=== PATIENT | female | born 1965 | race Caucasian/White ===

== ENCOUNTER 2016-07-26 17:43 | Inpatient (IN) | payer MEDICARE, BC ==
[2016-07-26 18:30] LABS: Glucose,Whole Blood 111 mg/dL (75-99)
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
--- NOTE | 2016-07-26 19:06 | CT ---
EXAMINATION TYPE: CT brain wo con for TPA DATE OF EXAM: 07/26/2016 COMPARISON: NONE HISTORY: Loss of function in Right Lower leg. No known injury CT DLP: 1121 mGycm Automated exposure control for dose reduction was used. FINDINGS: Ventricles of normal size. There is no mass effect nor midline shift. There is no sign of intracrania l hemorrhage. The calvarium is intact. IMPRESSION: Negative unenhanced head CT scan.
--- NOTE | 2016-07-26 19:15 | XR ---
EXAMINATION TYPE: XR chest 2V DATE OF EXAM: 07/26/2016 COMPARISON: NONE HISTORY: Leg weakness TECHNIQUE: Frontal and lateral views of the chest are obtained. FINDINGS: Heart and mediastinum are normal. Lungs are clear. Diaphragm is normal. There are chest le ads. Bony thorax appears normal. IMPRESSION: Normal chest
[2016-07-26 19:24] LABS: Basophils % (A) 0 %; CHCM 32.2; Eosinophils # (A) 0.3 k/uL (0-0.7); Eosinophils % (A) 3 %; HCT 35.8 % (34.0-46.0); HDW 2.81; HGB 11.2 gm/dL (11.4-16.0); Hypochromasia Slight; Luc # (Auto) 0.19; Luc % (Auto) 2; Lymphocytes # (A) 2.7 k/uL (1.0-4.8); Lymphocytes % (A) 29 %; MCH 28.4 pg (25.0-35.0); MCHC 31.4 g/dL (31.0-37.0); MCV 90.6 fL (80.0-100.0); Mean Platelet Volume 7.6; Monocytes # (A) 0.5 k/uL (0-1.0); Monocytes % (A) 5 %; Neutrophils # (A) 5.6 k/uL (1.3-7.7); Neutrophils % (A) 60 %; RBC 3.95 m/uL (3.80-5.40); RDW 14.3 % (11.5-15.5); WBC 9.3 k/uL (3.8-10.6)
[2016-07-26 19:28] LABS: Creatine Kinase 105 U/L (30-135)
[2016-07-26 19:30] LABS: ALT 26 U/L (9-52); AST 25 U/L (14-36); Alkaline Phosphatase 91 U/L (38-126); Anion Gap 10 mmol/L; Blood Urea Nitrogen 14 mg/dL (7-17); Calcium 9.2 mg/dL (8.4-10.2); Carbon Dioxide 20 mmol/L (22-30); Chloride 109 mmol/L (98-107); Glucose 105 mg/dL (74-99); Non-African American GFR(MDRD) 59 (>60 ml/min/1.73 sqM); Sodium 139 mmol/L (137-145); Total Bilirubin 0.3 mg/dL (0.2-1.3); Total Protein 7.2 g/dL (6.3-8.2)
[2016-07-26 19:37] LABS: Prothrombin Time 10.5 sec (9.0-12.0)
[2016-07-26 19:41] LABS: Creatine Kinase MB 1.9 ng/mL (0.0-2.4); Troponin I <0.012 ng/mL (0.000-0.034)
[2016-07-26] MEDS ORDERED: KETOROLAC 30 MG/ML 1 ML VIAL IVP STA (20:35)
[2016-07-26 22:48] VITALS: BMI 35.9
[2016-07-26] MEDS ORDERED: NON-FORMULARY DRUG (Dextroamphetamine/Amphetamine [Adderall] 15 MG) PO SCH (23:15)
[2016-07-27] MEDS: B COMPLEX-VIT C-VIT E-ZINC 1 EACH TAB PO SCH ×2 (00:13→21:05)
[2016-07-27] MEDS: TOPIRAMATE 100 MG TAB PO SCH ×4 (00:13→21:05)
[2016-07-27] MEDS: ALPRAZolam 0.5 MG TAB PO SCH ×5 (00:13→21:04)
[2016-07-27] MEDS: OLANZapine 10 MG TAB PO SCH ×2 (00:13→21:05)
[2016-07-27] MEDS: ZOLPIDEM 10 MG TAB PO SCH ×2 (00:13→21:04)
[2016-07-27] MEDS: DULoxetine HCL 60 MG CAPSULE.DR PO SCH ×3 (00:13→21:05)
[2016-07-27] MEDS: NAPROXEN 250 MG TAB PO PRN ×2 (01:15→11:27)
[2016-07-27] MEDS: IBUPROFEN 800 MG TAB PO PRN ×2 (01:16→11:26)
[2016-07-27 07:34] LABS: Cholesterol 224 mg/dL (<200); HDL Cholesterol 64 mg/dL (40-60); Triglycerides 122 mg/dL (<150)
[2016-07-27] MEDS ORDERED: ENOXAPARIN 40 MG/0.4 ML SYRINGE SQ STA (07:57)
[2016-07-27] MEDS: LISINOPRIL 10 MG TAB PO SCH (08:37)
--- NOTE | 2016-07-27 11:02 | US ---
EXAMINATION TYPE: US carotid duplex BILAT DATE OF EXAM: 07/27/2016 COMPARISON: CLINICAL HISTORY: Stenosis. Patient states right leg numbness from knee down EXAM MEASUREMENTS: RIGHT: Peak Systolic Velocity (PSV) cm/sec ----- Right CCA: 84.2 ----- Right ICA: 111.4 ----- Right ECA: 101.2 ICA/CCA ratio: 1.3 RIGHT: End Diastole cm/sec ----- Right CCA: 40.6 ----- Right ICA: 48.9 ----- Right ECA: 35.8 LEFT: Peak Systolic Velocity (PSV) cm/sec ----- Left CCA: 96.0 ----- Left ICA: 114.5 ----- Left ECA: 81.4 ICA/CCA ratio: 1.2 LEFT: End Diastole cm/sec ----- Left CCA: 40.5 ----- Left ICA: 49.9 ----- Left ECA: 15.4 VERTEBRALS (direction of flow): Right Vertebral: Antegrade Left Vertebral: Antegrade No elevated velocities or significant stenosis. No plaque seen. Bilateral thickened holden. Grayscale, color Doppler, spectral Doppler imaging performed of the carotid arteries. IMPRESSION: No hemodynamic significant stenosis of the proximal internal carotid arteries bilaterally by Doppler criteria, an indirect measurement of carotid stenosis
[2016-07-27 15:07] VITALS: RESP 18
--- NOTE | 2016-07-27 23:07 | HP ---
DATE OF ADMISSION: 07/26/2016 PRESENTING COMPLAINT: Right leg weakness. HISTORY OF PRESENTING COMPLAINT: This is a 51-year-old patient with a family doctor out of the area whose chronic stable medical conditions include hypertension, kidney stones, sciatica ( ) problems on the right side, bipolar which is controlled, PTSD and restless leg syndrome. Patient states oftentimes she gets pain and numbness down the right leg. The patient was at a friend's place sitting at the dining table probably in a wooden chair; not sure if her leg was down or if she was cross-legged; when she got up, she had minimal feeling below the knee. She could still feel the leg, but it just felt different; was not able to dorsiflex her foot. Patient has had back pain on and off for some time. There was no weakness in the arm. No change in speech. No change in vision. Symptoms have not changed. Initial CT scan of the brain was negative. REVIEW OF SYSTEMS: CONSTITUTIONAL: None. HEENT: Occasional headaches. RESPIRATORY: None. CARDIOVASCULAR: None. GASTROINTESTINAL: None. GENITOURINARY: None. MUSCULOSKELETAL: As above. DERMATOLOGICAL: None. HEMATOLOGICAL: None. LYMPHATICS: None. PSYCHIATRY: None. NEUROLOGICAL: As above. PAST MEDICAL HISTORY: 1. Hypertension. 2. Kidney stones. 3. Sciatica. 4. Bipolar disorder. 5. PTSD. 6. Restless leg syndrome. PAST SURGICAL HISTORY: 1. D&C. 2. Lithotripsy. PAST PSYCHIATRIC HISTORY: PTSD. SOCIAL HISTORY: No smoking. Alcohol rarely. Smokes marijuana sometimes for anxiety and for pain. FAMILY HISTORY: Hypertension. HOME MEDICATIONS: 1. Ambien 10 mg p.o. at bedtime. 2. Vitamin B complex 1 capsule at bedtime. 3. Topamax 200 mg p.o. t.i.d. 4. Zyprexa 10 mg p.o. at bedtime. 5. Zestril 10 mg p.o. daily. 6. Adderall 50 mg p.o. b.i.d. 7. Cymbalta 60 mg b.i.d. 8. Xanax 1 mg p.o. q.i.d. 9. Ibuprofen. ALLERGIES: NONE. PHYSICAL EXAMINATION: VITAL SIGNS ON PRESENTATION: Temperature 98.3, pulse 98, respiration 18, blood pressure 144/98, pulse ox 99% on room air. GENERAL APPEARANCE: Well built; BMI of 35. Lying in bed. Not in distress. EYES: Pupils equal. Conjunctivae normal. HEENT: Oral cavity normal. NECK: JVD is not raised. Mass not palpable. RESPIRATORY: Effort normal. LUNGS: Fair air entry. CARDIOVASCULAR: First and second sounds normal. No edema. ABDOMEN: Soft, nontender. Liver and spleen not palpable. LYMPHATICS: No lymph node palpable in neck or axillae. PSYCHIATRY: Alert and oriented x3. Mood and affect normal. NEUROLOGICAL: Patient has decreased sensation below the right knee. Patient has very weak dorsiflexion. Otherwise, patient's [id number] is good in both the legs and knee reflexes are equal. INVESTIGATIONS: White count 9.3, hemoglobin 11.2. Potassium 4.0. BUN 40, creatinine 1.0. LDL 136. CT scan of the brain unremarkable. ASSESSMENT: 1. This is a patient who has long-standing sciatica with intermittent symptoms in the right leg; now presents with acute decreased sensation in the right leg and failure of dorsiflexion. This well could be a peripheral neural injury like a peroneal nerve. In addition to the sciatica problem patient has, highly doubt this to be more of a central cause. We need to rule out the same. 2. Essential hypertension. 3. Bipolar disorder, controlled. 4. Post-traumatic stress disorder, controlled. 5. Restless leg syndrome. 6. Obesity; body mass index of 35.8. PLAN: At this point, we will do an MRI of the lower lumbar spine. Neurology was consulted. Care was discussed with the patient. Home medications are resumed. Will also get an orthopedic opinion.
[2016-07-28] MEDS: LISINOPRIL 10 MG TAB PO SCH (08:15)
[2016-07-28] MEDS: DULoxetine HCL 60 MG CAPSULE.DR PO SCH ×2 (08:15→21:44)
[2016-07-28] MEDS: ALPRAZolam 0.5 MG TAB PO SCH ×4 (08:15→21:44)
[2016-07-28] MEDS: TOPIRAMATE 100 MG TAB PO SCH ×3 (08:15→21:44)
[2016-07-28] MEDS: ENOXAPARIN 40 MG/0.4 ML SYRINGE SQ SCH (08:15)
--- NOTE | 2016-07-28 09:15 | CONS ---
DATE OF CONSULTATION: 07/27/2016 CHIEF COMPLAINT: Right leg weakness. HISTORY OF PRESENT ILLNESS: The patient is a pleasant 51-year-old, female who is being evaluated today on 07/27/2016 by the neurology service per the request of Dr. West for right lower extremity weakness. The patient states that she was visiting her friend here in town and was sitting on a wooden bench. She believes she was sitting with her right leg beneath her. When she went to stand up, she felt weakness in her right leg along with numbness from below the knee down to her right foot. She does report a history of low back pain and sciatica, but denies any similar symptoms like this. She denies any new injuries. She denies any upper extremity symptoms. In the emergency room, a CT scan of the brain was done, which was normal. Her carotid Doppler showed no hemodynamically significant stenosis. Her CBC, comprehensive metabolic profile, INR and cardiac enzymes were all normal. Her fasting lipid panel showed mild dyslipidemia with cholesterol of 224 and an LDL of 136. PAST MEDICAL HISTORY: Hypertension, bipolar disorder, anxiety disorder, posttraumatic stress disorder, history of nephrolithiasis, history of lithotripsy and D&C. SOCIAL HISTORY: She denies any tobacco use. She rarely drinks alcohol. She does smoke marijuana. FAMILY HISTORY: Noncontributory. HOME MEDICATIONS: Reviewed in the chart. ALLERGIES: No known drug allergies. REVIEW OF SYSTEMS: CONSTITUTIONAL: Negative. EYES: Negative. CARDIOVASCULAR: Negative. ENT: Negative. RESPIRATORY: Negative. NEUROLOGICAL: As mentioned above. GASTROINTESTINAL: Negative. GENITOURINARY: Negative. PSYCHIATRIC: As mentioned above. Dermatological: Negative. MUSCULOSKELETAL: As mentioned above. ENDOCRINE: Negative. PHYSICAL EXAM: Vital signs show a temperature of 97.1, pulse 75, respirations 18, blood pressure 107/69. GENERAL APPEARANCE: The patient is a mildly obese female who appears to be in no acute distress. HEENT: Normocephalic, atraumatic, no facial asymmetry is seen. Neck is supple with no masses felt. CARDIOVASCULAR: Regular rate and rhythm. ABDOMEN: Nontender, nondistended. EXTREMITIES: No edema or clubbing. NEUROLOGICAL EXAM: The patient is alert, aware, and oriented x3. Speech and language are normal. Strength examination showed weakness and right ankle dorsiflexion. Otherwise, strength was normal. Sensory exam showed diminished light touch sensation in right leg and foot compared to the left side. Deep tendon reflexes showed hyporeflexia on the right lower extremity compared to the left. No facial asymmetry is noticed on cranial nerve testing. No tremors or seizure-like activity is seen. IMPRESSION: 1. Right lower extremity weakness. 2. Right lower extremity sensory deficit. 3. 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 4. Chronic low back pain. 5. Dyslipidemia. RECOMMENDATIONS: The patient continues to have weakness in the distal right lower extremity. I do believe the patient developed acute entrapment neuropathy which was likely due to seating position. There is no evidence of any ischemic stroke to account for her symptoms. The patient will need further outpatient neurophysiological work-up. I will order an MRI of the lumbar spine to check for any disc displacement. I will start her on Solu-Medrol 125 mg IV every 8 hours. If the patient is to be discharged, consider treating her with prednisone 60 mg daily for one week and then tapering. Physical therapy will be consulted. I will continue to follow with you. Further recommendations to follow. Thank you for allowing me to participate in the care of your patient. If you have any questions, please call free to contact me.
--- NOTE | 2016-07-28 14:58 | MR ---
EXAMINATION TYPE: MR lumbar spine wo con DATE OF EXAM: 07/28/2016 COMPARISON: NONE HISTORY: LBP, weakness/loss of feeling rt leg from knee to foot TECHNIQUE: T1 and T2 axial and sagittal images of the lumbar spine are submitted. FINDINGS: There is no abnormal signal seen within the visualized spinal cord or paraspinal soft tissu es. At L1-2 there is no disc herniation, canal stenosis or foraminal encroachment. At L2-3 there is disc desiccation. There is mild facet arthropathy. Minimal broad-based central disc bulging. No canal stenosis or foraminal encroachment. At L3-4 there is no disc herniation or canal stenosis. Mild hypertrophy of the facet joints. At L4-5 there is mild facet arthropathy. No disc herniation or canal stenosis. No foraminal encroachm ent. At L5-S1 there is no disc herniation, canal stenosis, foraminal encroachment. There is facet arthropa thy. Cannot exclude a spondylolysis of L5. No spondylolisthesis. IMPRESSION: 1. Multilevel mild degenerative disc disease with facet arthropathy. Minimal broad-based disc bulging L2-L3 with no canal stenosis or foraminal encroachment.
--- NOTE | 2016-07-28 15:46 | P.PN ---
Progress Note - Text DATE OF SERVICE: 07/28/2016 PRESENTING COMPLAINT: Right leg weakness INTERVAL HISTORY: Is a 51-year-old female who has acute decreased sensation in the right leg, failure to dorsiflex. Neurology ordered MRI, now completed see results below. Steroids initiated.Today patient states she still has some difficulty with the right leg, has been up with assistance, tolerating her diet, moving her bowels. REVIEW OF SYSTEMS: Done for constitutional ,cardiovascular, GI, pulmonary neurologic, musculoskeletal with relevant findings as above. CURRENT MEDICATIONS Xanax, Cymbalta, Lovenox, Solu-Medrol, Topamax, Ambien. PHYSICAL EXAM: VITAL SIGNS: Temperature 97.3, pulse 87 respiratory rate 18 blood pressure 115/78 oxygen saturation 99% on room air GENERAL APPEARANCE: Lying in bed, sleeping,arouable to minimum stimuli. EYES: Pupils equal. Conjunctiva normal. NECK: JVD not raised. Mass not palpable. RESPIRATORY: Respiratory effort normal. Lungs clear to auscultation. CARDIOVASCULAR: First and second sounds normal. No edema. ABDOMEN: Soft. Liver and spleen not palpable. No tenderness. No mass palpable. PSYCHIATRY: Alert and oriented x3. Mood and affect normal. NEUROLOGICAL: Decreased sensation below the right knee, dorsiflexion weak, straight leg raise positive bilaterally, reflexes present bilaterally. INVESTIGATIONS: Hemoglobin 11.2, Accu-Cheks noted MRI lumbar spine: Multilevel mild degenerative disc disease with facet arthropathy. Minimal broad-based disc bulging L2L3 no canal stenosis or foraminal encroachment. ASSESSMENT: Acute decreased sensation in the right leg, failure to dorsiflex likely due to Sciatica long-standing with intermittent symptoms, possibly peripheral neural injury. Essential hypertension. Bipolar disorder, controlled. Posttraumatic stress disorder, controlled. Restless leg syndrome. Strang obesity body mass index of 35.8. PLAN: MRI completed today, Solu-Medrol 125 mg, every 8 hours, when discharging patient should be sent home on Solu-Medrol 60 mg for a week and then a taper dose. Patient should continue to work with physical therapy. Await input from orthopedics. We'll follow closely . FRONT OFFICE ATTENDANT statement: Patient was seen and examined by nurse practitioner Yaz Loco in all elements of the case discussed with attending is Dr. West
[2016-07-28] MEDS ORDERED: methylPREDNISolone SOD SUCCI 125 MG/2 ML VIAL IV SCH (16:00)
--- NOTE | 2016-07-28 16:00 | P.PN ---
Subjective Principal diagnosis: Right leg weakness This is a pleasant 51-year-old female continuing to be evaluated by the neurology service for the above complaint. Recall that she was sitting on a wooden bench with her right leg beneath her. She went to stand and felt weakness in her right leg along with numbness below the knee. She does have a significant history of lumbago and sciatica. In the ER CT of the brain was done that was normal. Her carotid Doppler showed no hemodynamically significant stenosis. An MRI of the lumbar spine showed mild multilevel disc degenerative disease. There was no significant canal compromise or foraminal encroachment. Objective - Vital Signs Vital signs: Vital Signs Temp 97.3 F L 07/28/16 12:00 Pulse 87 07/28/16 12:00 Resp 18 07/28/16 12:00 BP 115/78 07/28/16 12:00 Pulse Ox 99 07/28/16 12:00 Intake & Output 07/27/16 07/28/16 07/28/16 18:59 06:59 18:59 Intake Total 1420 836 Output Total 1050 Balance 1420 -1050 836 Weight 87.6 kg Intake: Oral 1420 836 Output: Urine 1050 Other: Voiding Method Toilet Toilet # Voids 1 1 1 - Constitutional General appearance: Present: average body habitus, no acute distress - EENT Eyes: Present: PERRLA. Absent: abnormal pupil ENT: Present: hearing grossly normal - Neck Neck: Present: normal ROM, rigidity - Respiratory Respiratory: negative: prolonged expiration, prolonged inspiration - Cardiovascular Rhythm: regular - Neurologic Neurologic Comment(s): Patient is alert awake and oriented 3. Speech-language are normal. Sensation normal in all 4 extremities except decreased sensation of the right distal lower extremity below the knee. Plantar flexion is 5 minus out of 5. She has an inability to dorsiflex. There are no temperature or skin changes. 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 I did review her MRI of the lumbar spine with her. She has likely suffered a acute entrapment neuropathy likely of the right peroneal nerve. She will continue IV Solu-Medrol while in the hospital and discharged on oral prednisone as ordered. Continue to work with physical therapy. She will need to be seen in outpatient setting for further electrophysiologic testing. Otherwise she is discharged from a neurological standpoint I have performed a history and physical on the above patient. I have reviewed the above note, and agree.
[2016-07-28] MEDS: NAPROXEN 250 MG TAB PO PRN (16:26)
[2016-07-28] MEDS: IBUPROFEN 800 MG TAB PO PRN (16:27)
[2016-07-28 20:56] LABS: Glucose,Whole Blood 130 mg/dL (75-99)
[2016-07-28] MEDS ORDERED: INSULIN LISPRO (humaLOG) 300 UNIT/3 ML VIAL SQ SCH (21:00)
[2016-07-28] MEDS: OLANZapine 10 MG TAB PO SCH (21:44)
[2016-07-28] MEDS: ZOLPIDEM 10 MG TAB PO SCH (21:44)
[2016-07-28] MEDS: B COMPLEX-VIT C-VIT E-ZINC 1 EACH TAB PO SCH (21:44)
--- NOTE | 2016-07-29 07:48 | PN ---
DATE OF SERVICE: 07/28/2016 ATTENDING NOTE: This patient was seen and examined by me earlier today. I reviewed the note of my nurse practitioner, Ms. Loco, and discussed, reviewed with additional finding as below. This patient presented with weakness below the right knee with a foot drop felt to be entrapment neuropathy. Dr. Madison earlier started the patient on IV Solu-Medrol. Patient apparently was seeing orthopedics but I do not have a formal note. Boot has been ordered, which has been noted. On examination, blood pressure 105/78. NEUROLOGICAL: Decreased sensation below the right knee and poor dorsi flexion. ASSESSMENT: Entrapment neuropathy causing weakness of the right leg with foot drop. PLAN: Patient started IV Solu-Medrol earlier. Will switch it over to p.o. prednisone. Awaiting for the boot to come in. Talked to the patient.
[2016-07-29] MEDS: DULoxetine HCL 60 MG CAPSULE.DR PO SCH (08:33)
[2016-07-29] MEDS: ALPRAZolam 0.5 MG TAB PO SCH (08:33)
[2016-07-29] MEDS: LISINOPRIL 10 MG TAB PO SCH (08:34)
[2016-07-29] MEDS: ENOXAPARIN 40 MG/0.4 ML SYRINGE SQ SCH (08:34)
[2016-07-29] MEDS: TOPIRAMATE 100 MG TAB PO SCH (08:34)
[2016-07-29] MEDS ORDERED: predniSONE 20 MG TAB PO SCH (09:00)
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
[2016-07-29 11:35] VITALS: BP 122/81; PULSE 87; TEMP 97.8
--- NOTE | 2016-07-31 21:51 | DS ---
DATE OF ADMISSION: 07/26/2016 DATE OF DISCHARGE: 07/29/2016 FINAL DIAGNOSES: 1. Acute entrapment and neuropathy of the right leg causing foot drop. 2. Essential hypertension. 3. Bipolar disorder, controlled. 4. Post-traumatic stress disorder, controlled. 5. Restless leg syndrome. 6. Obesity; body mass index of 35.8. HOSPITAL COURSE: This patient presented with numbness and foot drop in the right leg below the right knee. Though patient has chronic low back pain, this was felt to be more of entrapment neuropathy. CT scan of the brain was unremarkable. EKG showed normal sinus rhythm. Carotid Doppler did not show any significant stenosis. Lumbar spine MRI showed multi-level mild DJD changes, some minimal disc bulging at L2 to L3. CONSULTATIONS: 1. Dr. Martinez from Orthopedics. 2. Dr. Madison from Neurology. A ( ) boot was given because patient lives in [place]. She will pick it up from there. Patient will be given a walker and prescription for PT and OT. Care was discussed at length. On examination, right foot drop and some decreased sensation below the knee. Patient was cleared by both Orthopedics and Neurology to go home. Discharge planning more than 35 minutes. DISCHARGE MEDICATIONS: 1. Xanax 1 mg p.o. q.i.d. 2. Cymbalta 60 mg p.o. b.i.d. 3. Adderall 15 mg p.o. b.i.d. 4. Zestril 10 mg p.o. daily. 5. Zyprexa 10 mg at bedtime. 6. Topamax 200 mg p.o. t.i.d. 7. Vitamin B complex 1 capsule p.o. at bedtime. 8. Ambien 10 mg at bedtime. 9. Prednisone as directed. 10. Ibuprofen 800 mg q.8 p.r.n. Follow up with her family doctor in 3 days. Follow up with her own neurologist in one week. Follow up with her own orthopedics doctor in one week. She lives in the [place]. Prescription given for a boot, PT and OT. Discharge planning more than 35 minutes.
[2016-08-04] MEDS ORDERED: predniSONE 20 MG TAB PO SCH (09:00)
== END 2016-07-29 12:11 | disposition home or self-care (01) | DRG 74 ==
LOC: EC 17:43 → 6SEL 19:32
PROVIDERS: ADMIT Hospitalist; ATTEND Hospitalist
DX: G57.91 Unspecified mononeuropathy of right lower limb (principal); I10 Essential (primary) hypertension; M21.371 Foot drop, right foot; F31.9 Bipolar disorder, unspecified; F43.10 Post-traumatic stress disorder, unspecified; G25.81 Restless legs syndrome; M51.26 Other intervertebral disc displacement, lumbar region; M19.91 Primary osteoarthritis, unspecified site; F12.90 Cannabis use, unspecified, uncomplicated; M54.40 Lumbago with sciatica, unspecified side; E78.5 Hyperlipidemia, unspecified; G89.29 Other chronic pain; F45.22 Body dysmorphic disorder; Z87.442 Personal history of urinary calculi; E66.9 Obesity, unspecified; Z68.35 Body mass index [BMI] 35.0-35.9, adult; Z79.1 Long term (current) use of non-steroidal anti-inflammatories (NSAID); Z79.899 Other long term (current) drug therapy
CPT/HCPCS: 36415; 70450; 71020; 72148; 80053; 80061; 82550; 82553; 84484; 85025; 85610; 85730; 93005; 93880; 96374; 99285